=== PATIENT | male | born 1940 | race Caucasian/White ===

== ENCOUNTER 2018-12-13 13:27 | Outpatient (CLI) | payer MEDICARE, BC | END 2018-12-13 13:28 | disposition home or self-care (01) | DRG 561 | LOC: CONVCARE 13:27 | PROVIDERS: ATTEND Orthopaedic Surgery | DX: Z47.1 Aftercare following joint replacement surgery (principal); Z96.643 Presence of artificial hip joint, bilateral; M25.552 Pain in left hip; M25.551 Pain in right hip | CPT/HCPCS: 73522 ==